=== PATIENT | female | born 1990 | race African-American/Black ===

== ENCOUNTER 2017-01-19 03:26 | Emergency (ER) | payer MEDICAID ==
[~2017-01-19] VITALS: Ht 162.6 cm; Wt 54.4 kg
[2017-01-19 04:36] LABS: Basophils # (auto) 0 uL; Basophils % (auto) 0.7 % (0.0-2.0); CONDITION Y; DEFINITIVE SEE PRINTOUT; Eosinophils # (auto) 0.3 uL; Hematocrit 29.9 % (36.0-46.0); Hemoglobin 9.8 g/dL (12.2-16.2); Lymphocytes # (auto) 1.9 uL; Mean Corpuscular Hemoglobin 26.4 pg (28.0-32.0); Mean Corpuscular Hgb Conc. 32.7 g/dL (32.0-36.0); Mean Corpuscular Volume 80.9 fL (80.0-100.0); Mean Platelet Volume 8.9 fL (7.4-10.4); Monocytes # (auto) 0.4 uL; Monocytes % (auto) 7.9 % (0.0-12.0); Neutrophils # (auto) 2.5 uL; Neutrophils % (auto) 48.4 % (37.0-80.0); Platelet Count (auto) 219 10^3/uL (140-450); Red Cell Distribution Width 14.6 % (11.6-16.0); White Blood Cell 5.1 10^3/uL (4.4-10.8)
[2017-01-19 04:57] LABS: Albumin 3.1 g/dL (3.4-5.0); Calcium 7.4 mg/dL (8.5-10.1); Potassium 3.6 mmol/L (3.5-5.1)
[2017-01-19 05:00] LABS: Acetaminophen < 2.0 ug/mL (10-30); BUN/Creatinine Ratio 18.3; Salicylate < 1.7 mg/dL (2.8-20.0)
[2017-01-19 05:03] LABS: Bilirubin, Total 0.3 mg/dL (0.2-1.0); Total Protein 6.3 g/dL (6.4-8.2)
[2017-01-19 08:01] VITALS: BP 96/51
== END 2017-01-19 08:42 | disposition home or self-care (01) ==
LOC: EDBD 03:26 → ER 03:26
DX: O26.891 Other specified pregnancy related conditions, first trimester (principal); F10.10 Alcohol abuse, uncomplicated; O99.331 Smoking (tobacco) complicating pregnancy, first trimester; O99.011 Anemia complicating pregnancy, first trimester; O25.11 Malnutrition in pregnancy, first trimester
CPT/HCPCS: 36415; 80053; 80320; 80329; 84702; 85025